=== PATIENT | female | born 1990 | race Caucasian/White ===

== ENCOUNTER 2017-02-13 11:25 | Outpatient (CLI) | payer OTHER ==
[~2017-02-13] VITALS: Ht 167.6 cm; Wt 103.0 kg
[2017-02-13 11:42] VITALS: BP 129/66; PULSE 96; RESP 18
[2017-02-13 11:50] VITALS: Ht 167.6 cm; Wt 103.0 kg
[2017-02-13] MEDS ORDERED: PRENAT PO (12:14)
[2017-02-13] MEDS ORDERED: FER325 PO (12:15)
[2017-02-13] MEDS ORDERED: GLYB5TAB3 PO (13:09)
--- NOTE | 2017-02-13 13:10 | RADRPT ---
PROCEDURE: Limited OB ultrasound for JAVY. CLINICAL INDICATION: Gestational diabetes TECHNIQUE: Sonographic evaluation to assess the amniotic fluid volume was performed. Transabdomin al imaging of the gravid uterus was performed. COMPARISON: OB ultrasound 10/26/2016 FINDINGS: Single live intrauterine with cardiac activity is identified. The heart rate i s 143 bpm. The amniotic -fluid volume equals approximately 14.8 cm, within normal limits. The plac enta is posterior. The lie is cephalic. IMPRESSION: 1. Amniotic fluid volume equals 14.8 cm. RPTAT: KK .Arnoldo Jolly MD, MD Date Time Electronically viewed and signed by .Arnoldo Jolly MD, MD on 02/13/2017 13:10 .B/
--- NOTE | 2017-02-14 16:34 | PN ---
Triage Information Date/Time Reason for visit: Assessment for elevated blood sugar Weeks of Gestation 37WEEKS /Para G2 P Diabetes: gestational Diabetes management: diet controlled Hypertention: none Objective Vital Signs Date Time Temp Pulse Resp B/P Pulse Ox O2 Delivery O2 Flow Rate FiO2 02/13/17 11:42 98.2 96 18 129/66 97 Room Air Heart Rate: 130's Contractions: None Exam Late entry ,patient seen in the triage unit with A2 diabetes on glyburide referred NST JAVY,14.8 and discharge with the report to the [facility]. Disposition: Discharge TIFFANIE GARCIA MD Feb 14, 2017 16:34
== END 2017-02-13 13:15 | disposition home or self-care (01) ==
LOC: OBT 11:25 → L-D 11:25 → OBT 13:15
PROVIDERS: ATTEND Obstetrics & Gynecology
DX: O24.419 Gestational diabetes mellitus in pregnancy, unspecified control (principal); Z3A.37 37 weeks gestation of pregnancy
CPT/HCPCS: 76815; Z7500; G0463

== ENCOUNTER → 2017-02-13 | Outpatient (CLI) | payer OTHER ==
[~2017-02-13] MED LIST: FER325 PO; GLYB5TAB3 PO; PRENAT PO
== END | disposition home or self-care (01) ==
LOC: OBT 13:23
PROVIDERS: ATTEND Obstetrics & Gynecology
DX: O24.419 Gestational diabetes mellitus in pregnancy, unspecified control (principal); Z3A.37 37 weeks gestation of pregnancy

== ENCOUNTER 2017-02-16 13:34 | Outpatient (CLI) | payer OTHER ==
[~2017-02-16] VITALS: Ht 167.6 cm; Wt 103.0 kg
--- NOTE | 2017-02-16 13:58 | RADRPT ---
PROCEDURE: OB ultrasound for biophysical profile CLINICAL INDICATION: Gestational diabetes TECHNIQUE: Multiple sonographic images of the pelvis were obtained. Transabdominal view of the gr avid uterus are available for review. The images were reviewed on a PACS workstation. COMPARISON: OB ultrasound 02/13/2017 FINDINGS: breathing movement = 2/2 tone = 2/2 motion = 2/2 JAVY = 2/2 JAVY = 14.4 cm Single live intrauterine with cardiac activity. heart rate equals 159 beats p er minute. Presentation is cephalic. The placenta is left lateral, grade II. IMPRESSION: 1. Single viable intrauterine gestation. 2. Biophysical profile = 88. 3. JAVY = 14.4 cm. RPTAT: KK .Arnoldo Jolly MD, MD Date Time Electronically viewed and signed by .Arnoldo Jolly MD, MD on 02/16/2017 13:58 .B/
[2017-02-16 14:21] VITALS: Ht 167.6 cm; Wt 103.0 kg
[2017-02-16 14:23] VITALS: BP 126/69
--- NOTE | 2017-02-16 15:17 | TRIAGE ---
OB Triage Datetime Report Generated by CPN: 02/16/2017 15:17 Datetime: 02/16/2017 14:12 Stage of : OB Triage Assessment Type: Triage Maternal Assessment Level of Consciousness: Fully Conscious DTR's/Clonus: DTRs 2+; No Clonus Headache: Denies Blurred Vision: No Respiratory Effort: Unlabored; Regular Rhythm; Equal Expansion Breath Sounds, Left: Clear and Equal Breath Sounds, Right: Clear and Equal Nausea/Vomiting: Denies RUQ Epigastric Pain: Denies Lower Extremities Edema: None Degree: None Upper Extremities Edema: None Degree: None Facial Edema: None Temperature Route: Oral Fall Risk Assessment History of Falling: (0) No Secondary Diagnosis: (0) No Ambulatory Aid: (0) Bedrest/Nurse Assist IV Therapy: (0) No Gait: (0) Normal/Bedrest/Immobile Mental Status: (0) Oriented to Own Ability Fall Score: 0 Fall Risk Score Definition: No Risk: No action required Monitor Mode: External Heart Rate FHR Baseline Rate: 175 Monitor Mode: External US Variability: Moderate 6-25 bpm Accelerations: 15X15 Decelerations: None Category: Category I Pain Assessment Pain Scale: 0 Pain Presence: None/Denies Datetime: 02/16/2017 13:28 Time of Arrival: 02/16/2017 13:28 EGA: 37.5 Arrived By: Ambulatory Arrived From: Home Chief Complaint: F/U NST BPP FOR A2DM Movement: Present Contractions: Denies/Absent Rupture of Membranes: Denies Vaginal Bleeding: None Vaginal Discharge: Denies Recent Sexual Intercouse: Denies Abdominal Trauma: Not Applicable Patient Complaints: None Initial Plan: EFMX2 NST/BPP JAVY Datetime: 02/13/2017 13:00 Stage of : OB Triage Datetime: 02/13/2017 12:00 Time of Arrival: 02/13/2017 11:20 EGA: 37.2 Arrived By: Ambulatory Arrived From: Dr. Amador Chief Complaint: SENT FROM [facility] FOR NST/JAVY Movement: Present Rupture of Membranes: Denies Vaginal Bleeding: None Vaginal Discharge: Denies Abdominal Trauma: Not Applicable Patient Complaints: None Provider Notified: JOSE Initial Plan: NST/JAVY Maternal Assessment Level of Consciousness: Fully Conscious DTR's/Clonus: DTRs 2+ Headache: Denies Blurred Vision: No Nausea/Vomiting: Denies RUQ Epigastric Pain: Denies Facial Edema: None Labor Evaluation Frequency: 0 Heart Rate FHR Baseline Rate: 145 Monitor Mode: External US FHR Baseline Changes: No Baseline Change Variability: Moderate 6-25 bpm Accelerations: 15X15 Decelerations: None Category: Category I Pain Assessment Pain Scale: 0 Vaginal Exam Membrane Status: Intact
--- NOTE | 2017-02-16 15:24 | CONS ---
Date/Time of Note Date/Time of Note DATE: 02/16/17 TIME: 15:17 Consultation Date/Type/Reason Admit Date/Time Reason for Consultation This patient is a 26 years old 2 para 1 with estimated date of confinement of March 04, 2017 which makes her 37 weeks and 5 days today. She came to OB triage due to the fact that the she has gestational diabetes and currently on glyburide. On examination she is a well-developed well-nourished lady near term. Her abdomen is soft, very rare contraction, heart tone appears to be normal Her general vital signs are normal with a blood pressure of 120/64 ,pulse rate of 92, respiration of 16 and temperature 98.6. heart tracing appears to be normal with good variability, occasional acceleration, no decelerations Constitutional: No chills, No diaphoresis, No disoriented, No febrile, No improved, No no complaints, No other, No poor po, No requiring IVF, No requiring O2 Eyes: No discharge, No no complaints, No other, No pain, No redness, No visual change ENT: No bleeding, No congestion, No discharge, No dysphagia, No no complaints, No other, No pain, No sore throat Respiratory: No cough, No no complaints, No other, No pain, No pleuritic pain, No shortness of breath, No sputum, No wheezing Cardiovascular: No chest pain, No edema, No lightheadedness, No no complaints, No orthopenea, No other, No palpitations, No paroxysmal nocturnal dyspnea Gastrointestinal: No blood, No constipation, No decreased appetite, No diarrhea , No flatus, No nausea, No no complaints, No other, No pain, No passing stool, No vomiting Genitourinary: other (Due to lack of any effective contractions pelvic exam was not performed), No bleeding, No discharge, No dysuria, No flank pain, No hematuria, No no complaints Musculoskeletal: No back pain, No bone/joint pain, No neck pain, No no complaints, No other, No restricted range of motion, No swelling Skin: No bruising, No erythema, No laceration, No no complaints, No other, No pruritis, No rash, No skin lesions Neurologic: other (Knee-jerk reflexes normal) Endocrine: No dry skin, No no complaints, No other, No polydypsia, No polyuria , No temp intolerance Lymphatic: No adenopathy, No lymphadema, No no complaints, No other, No tender nodes Additional Comments On ultrasound study the report is;a single live intrauterine with cardiac activity 159 beats per minutes, in vertex presentation, placenta was left lateral great to her biophysical profile was 8/8 amniotic fluid index 14.4 cm With these positive finding patient was discharged home to be followed in the clinic, and to continue her regiment of diabetes and taking glyburide 5 mg. Social History Smoking Status: Never smoker Exam/Review of Systems Vital Signs Vitals Vital Signs Date Time Temp Pulse Resp B/P Pulse Ox O2 Delivery O2 Flow Rate FiO2 02/16/17 14:23 98.6 126/69 Room Air ANNETTA BENEDICT MD Feb 16, 2017 15:24
== END 2017-02-16 15:29 | disposition home or self-care (01) ==
LOC: L-D 13:34 → OBT 13:34
PROVIDERS: ATTEND Obstetrics & Gynecology
DX: O24.415 Gestational diabetes mellitus in pregnancy, controlled by oral hypoglycemic drugs (principal); Z3A.37 37 weeks gestation of pregnancy; Z79.84 Long term (current) use of oral hypoglycemic drugs
CPT/HCPCS: 76818; Z7500; G0463

== ENCOUNTER 2017-02-27 09:19 | Inpatient (IN) | payer OTHER ==
[~2017-02-27] VITALS: Ht 167.6 cm; Wt 103.2 kg
[2017-02-27] MEDS ORDERED: CARBOPROST 250 MCG INJ IM PRN ×2 (09:30→16:30)
[2017-02-27] MEDS ORDERED: MISOPROSTOL 200 MCG TAB PR PRN ×2 (09:30→16:30)
[2017-02-27] MEDS ORDERED: OXYTOCIN 30 UNITS/LR 500 ML IV PRN ×2 (09:30→16:30)
[2017-02-27] MEDS ORDERED: CEFAZOLIN 2 GM/50 ML (PMX) 50 ML IV SCH (09:30)
[2017-02-27] MEDS ORDERED: METHYLERGONOVINE 0.2 MG INJ IM PRN ×2 (09:30→16:30)
[2017-02-27 09:33] VITALS: Ht 167.6 cm; Wt 103.2 kg
[2017-02-27] MEDS ORDERED: LACTATED RINGER'S 1,000 ML IV ONE (09:43)
[2017-02-27] MEDS ORDERED: FAMOTIDINE 20 MG INJ IV ONE (10:00)
[2017-02-27] MEDS ORDERED: CITRIC ACID/NA CITRATE 30 ML CUP PO ONE (10:00)
[2017-02-27] MEDS ORDERED: METOCLOPRAMIDE 10 MG INJ IV ONE (10:00)
[2017-02-27] MEDS: LACTATED RINGER'S 1,000 ML IV SCH ×2 (10:10→12:24)
[2017-02-27 10:34] VITALS: BP 131/82; PULSE 93; RESP 20
[2017-02-27 10:41] LABS: BASOPHILS % 0.4 % (0.0-2.0); EOSINOPHILS # 0.1 10^3/ul (0.0-0.5); EOSINOPHILS % 1.2 % (0.0-7.0); HEMOGLOBIN 12.7 g/dl (12.0-16.0); LYMPHOCYTES # 1.4 10^3/ul (0.8-2.9); LYMPHOCYTES % 14.3 % (15.0-51.0); MEAN CORPUSCULAR HEMOGLOBIN 27.3 pg (29.0-33.0); MEAN CORPUSCULAR HGB CONC 33.4 g/dl (32.0-37.0); MEAN CORPUSCULAR VOLUME 81.7 fl (82.0-101.0); MEAN PLATELET VOLUME 9.4 fl (7.4-10.4); MONOCYTE # 0.6 10^3/ul (0.3-0.9); MONOCYTES % 6.1 % (0.0-11.0); NEUTROPHILS % 77.5 % (39.0-77.0); PLATELET COUNT 275 10^3/UL (140-415); RED BLOOD COUNT 4.65 10^6/ul (4.20-5.40); RED CELL DISTRIBUTION WIDTH 14.3 % (11.5-14.5); WHITE BLOOD COUNT 9.9 10^3/ul (4.8-10.8)
[2017-02-27 11:02] LABS: INR 1.01; PARTIAL THROMBOPLASTIN TIME 28.5 Sec (25.0-35.0); PROTIME 13.3 Sec (12.2-14.2)
[2017-02-27] MEDS ORDERED: morphine SULFATE/PF (10 MG/10 ML) INJ ONE (12:47)
[2017-02-27] MEDS ORDERED: FENTAnyl 50 MCG/ML VIAL ONE (12:47)
[2017-02-27] MEDS ORDERED: PHENYLephrine (100 MCG/ML) 5ML SYG ONE (13:00)
[2017-02-27] MEDS ORDERED: OXYTOCIN 30 UNITS/LR 500 ML IV ONE (13:03)
[2017-02-27] MEDS ORDERED: ONDANSETRON 4 MG INJ ONE (13:04)
--- NOTE | 2017-02-27 14:22 | OPR ---
Operative Report Planned Procedure Free Text/Dictation 26 years old female history of previous EDC February admitted to [facility] at 39 weeks and 2 days for repeat Procedure date Feb 27, 2017 Procedure(s) Repeat Performed by: TIFFANIE GARCIA MD Assisting provider: FABIAN FELICIANO MD Anesthesiologist: MINESH STACY MD Pre-procedure diagnosis 39 weeks 2 days history of previous Anesthesia Type: spinal Procedure Description Under satisfactory spinal anesthesia, the patient was prepped and draped and placed in a supine position, tilted to the left. Pfannenstiel incision was made , carried through the subcutaneous tissue. Bleeders brought under control with electrocautery. Fascia incised to the length of the incision. Rectus muscles from the fascia, divided midline. Peritoneum exposed, entered through a transverse incision. Exploration of abdomen revealed gravid uterus normal- appearing tubes and ovaries. Bladder flap was developed. Transverse incision was made in the lower segment of the uterus which was extremely thinned out. Amniotic sac ruptured. [Clear] amniotic fluid noted. Live baby girl was delivered from L OT position Nasal oropharyngeal suction was performed. baby handed to the team for immediate attention. Patient received 20 units of Pitocin through the IV infusion placenta was delivered manually intact. Uterine cavity cleaned with wet sponge and drainage established. Uterus closed in 2 layers using [Monocryl #1] in continuous fashion. Peritoneal cavity irrigated with warm saline. Sponge, needle and instrument count reported to be correct. Abdominal peritoneum closed with [0 chromic catgut] continuously. Rectus muscle approximated with [several interrupted 2-0 chromic catgut fascia closed with #1 PDS [], tenderness tissue approximated with 2-0 chromic catgut skin closed with N sorb. Estimated blood loss 200 []mL. Urine bag contained [200 ]mL of clear urine and tolerated procedure well transferred to recovery room in good condition Post-Procedure Findings: Live Baby girl Apgars 8 and 9 Specimen removed: No Complications: None Pt Condition post procedure: stable Physician Certification I, the undersigned physician, hereby certify that I have discussed the procedure described in this consent form with this patient (or the patient's legal kiosk sales representative), including: * The risk and benefits of the procedure; * Any adverse reactions that may reasonably be expected to occur; * Any alternative efficacious methods of treatment which may be medically viable ; * The potential problems that may occur during recuperation; * Potential for blood transfusion and associated risks/benefits; and * Any research or economic interest I may have regarding this treatment. I further certify that the patient/legally responsible person was encouraged to ask question and that all questions were answered. TIFFANIE GARCIA MD Feb 27, 2017 14:22
[2017-02-27] MEDS ORDERED: ZOLPIDEM 5 MG TAB PO PRN (14:30)
[2017-02-27] MEDS ORDERED: KETOROLAC 30 MG INJ IV PRN (14:30)
[2017-02-27] MEDS ORDERED: MEPERIDINE 25 MG INJ IV PRN (14:30)
[2017-02-27] MEDS ORDERED: PROCHLORPERAZINE 10 MG INJ IV PRN (14:30)
[2017-02-27] MEDS ORDERED: ONDANSETRON 4 MG INJ IV PRN ×2 (14:30)
[2017-02-27] MEDS ORDERED: LABETALOL HCL 20MG INJ IV PRN (14:30)
[2017-02-27] MEDS ORDERED: HYDROmorphONE 1 MG/ML SYG IV PRN ×2 (14:30)
[2017-02-27] MEDS ORDERED: hydrALAzine 20 MG INJ IV PRN (14:30)
[2017-02-27] MEDS ORDERED: FENTAnyl 50 MCG/ML VIAL IV PRN (14:30)
[2017-02-27] MEDS ORDERED: HYDROmorphONE (0.2 MG/ML) 10ML SYG IV PRN (14:30)
[2017-02-27] MEDS ORDERED: OXYTOCIN 30 UNITS/LR 500 ML IV SCH (14:30)
[2017-02-27] MEDS ORDERED: DIPHENHYDRAMINE 50 MG INJ IV PRN ×2 (14:30)
[2017-02-27] MEDS ORDERED: NALOXONE (0.4 MG/ML) INJ IV PRN (14:30)
--- NOTE | 2017-02-27 14:58 | HP ---
Date/Time of Note Date/Time of Note DATE: 02/27/17 TIME: 14:22 OB - History Hx of Present Free Text/Dictation 26 years old female history of previous with EDC March 04, 2017 admitted to [facility] being prepared to undergo repeat . This patient has been under the care of the [facility] her was complicated with type II- NIDDM taking glyburide 5 mg twice daily , her admission fasting blood sugar 76 mg [employer] history- Menarche at age 11 history of 1 previous with section, type II -NIDDM no other pertinent surgical or medical addition reported in her records Allergies Denies allergy to any known medication Social habit Denies a smoking drinking or using illicit drug Review of system within normal Physical examination 66 inches 220 pound Temperature 98 pulse 94 respiration 20 blood pressure 128/65 Head ears nose and throat negative Neck supple no thyromegaly Lungs clear to P&A Heart normal sinus rhythm no murmur Abdomen, fundal height 37 cm from symphysis pubis, heart rate category 1 Pelvic examination, deferred Extremities no edema no varicosities Impression Intrauterine at 39 weeks and 1 day history of previous section type2-NIDDM admitted to [facility] for repeat C- section, she has been counseled regarding the complication of the surgery including but not limited to bowel and bladder injury, wound infection and hematoma hemorrhage ,she is willing to go ahead with the operation Chief Complaint: 39 weeks history of previous Estimated Due Date: Mar 04, 2017 : 2 Para: 1 Ultrasounds: Normal mid trimester US Obstetrical Complications: Gestational Diabetes Past Family/Social History * Past Medical, Surgical, Family and Obstetric Histories reviewed from chart. Rubella: immune RPR/VDRL: Negative GBS Status: Negative HBsAG: Negative OB Admission Exam Vital Signs Vital Signs Vital Signs Date Time Temp Pulse Resp B/P Pulse Ox O2 Delivery O2 Flow Rate FiO2 02/27/17 10:34 98.0 93 20 131/82 98 Room Air Physical Exam HEENT: WNL Heart: Rhythm Normal Lungs: Clear, Equal Extremities: Normal Reflexes: Normal Cervical Dilatation: None Station: -3 Membranes: Intact Heart Rate: 130's Accelerations: Accelerations Present Decelerations: No Decelerations Varibility: Moderate Last 72 hourBlood Glucose Bedside Glucose - 72 Hours Test 02/27/17 11:26 Bedside Glucose 86mg/dL (70-220) Last 72 hours Lab Results CBC & BMP 02/27/17 09:50 OB Assessment/Plan Plan: Other (26 years old 2 para 1 history of previous section admitted at 39 weeks and 1 day for repeat section) TIFFANIE GARCIA MD Feb 27, 2017 14:36
[2017-02-27] MEDS ORDERED: OXYCODONE/ACETAMINOPHEN (5/325) TAB PO PRN (16:30)
[2017-02-27] MEDS ORDERED: CEFAZOLIN 1 GM/50 ML (PMX) 50 ML IVPB SCH (16:30)
[2017-02-27] MEDS ORDERED: LANOLIN 7 GM TUBE TOP PRN (16:30)
[2017-02-27] MEDS ORDERED: HYDROCODONE/APAP (5/325) TAB PO PRN ×2 (16:30)
[2017-02-27 16:40] VITALS: BP 134/77; PULSE 82; RESP 18
[2017-02-27 17:10] VITALS: BP 131/75; PULSE 83
[2017-02-27] MEDS: KETOROLAC 30 MG INJ IV PRN (17:58)
[2017-02-27] MEDS: IBUPROFEN 600 MG TAB PO SCH ×2 (17:59→23:47)
[2017-02-27 18:10] VITALS: BP 133/60; PULSE 99; RESP 18
[2017-02-27] MEDS: OXYTOCIN 30 UNITS/LR 500 ML IV SCH ×2 (19:25→23:44)
[2017-02-27 19:45] VITALS: BP 127/69; PULSE 87; RESP 18
[2017-02-27] MEDS: SENNA/DOCUSATE NA (8.6MG/50MG) TAB PO SCH (21:00)
[2017-02-28] MEDS: OXYTOCIN 30 UNITS/LR 500 ML IV SCH ×6 (00:27→20:38)
[2017-02-28 03:47] VITALS: BP 126/58; PULSE 84
[2017-02-28] MEDS ORDERED: LACTATED RINGER'S 1,000 ML IV ONE (04:00)
[2017-02-28] MEDS: IBUPROFEN 600 MG TAB PO SCH ×4 (06:00→23:41)
[2017-02-28 07:42] VITALS: BP 119/66; PULSE 82; RESP 18
[2017-02-28] MEDS: KETOROLAC 30 MG INJ IV PRN (07:42)
[2017-02-28] MEDS: FERROUS SULFATE (EC) 325 MG TAB PO SCH (09:21)
[2017-02-28] MEDS: SENNA/DOCUSATE NA (8.6MG/50MG) TAB PO SCH ×2 (09:21→20:39)
[2017-02-28] MEDS: PRENATAL VITAMIN PO SCH (09:21)
--- NOTE | 2017-02-28 09:35 | PN ---
Date/Time of Note Date/Time of Note DATE: 02/28/17 TIME: 09:34 OB Subjective Subjective Subjective Post day 1 Afebrile Vital signs are stable Abdomen soft Incision dry Lochia normal Bowel sounds present Extremities normal Ambulation encouraged TIFFANIE GARCIA MD Feb 28, 2017 09:35
[2017-02-28 10:21] LABS: BASOPHILS % 0.4 % (0.0-2.0); EOSINOPHILS # 0.1 10^3/ul (0.0-0.5); EOSINOPHILS % 0.9 % (0.0-7.0); HEMATOCRIT 33.2 % (37.0-47.0); HEMOGLOBIN 10.9 g/dl (12.0-16.0); LYMPHOCYTES # 1.2 10^3/ul (0.8-2.9); LYMPHOCYTES % 11.9 % (15.0-51.0); MEAN CORPUSCULAR HEMOGLOBIN 27.3 pg (29.0-33.0); MEAN CORPUSCULAR HGB CONC 32.8 g/dl (32.0-37.0); MEAN PLATELET VOLUME 9.3 fl (7.4-10.4); MONOCYTE # 0.7 10^3/ul (0.3-0.9); MONOCYTES % 6.7 % (0.0-11.0); NEUTROPHILS % 79.6 % (39.0-77.0); PLATELET COUNT 223 10^3/UL (140-415); RED CELL DISTRIBUTION WIDTH 14.1 % (11.5-14.5); WHITE BLOOD COUNT 10.4 10^3/ul (4.8-10.8)
[2017-02-28 13:16] VITALS: BP 121/74; PULSE 97; RESP 20
[2017-02-28 16:08] VITALS: BP 123/67; PULSE 94; RESP 19
[2017-02-28 20:00] VITALS: BP 118/72; PULSE 78; RESP 17
[2017-02-28] MEDS: OXYCODONE/ACETAMINOPHEN (5/325) TAB PO PRN (20:40)
[2017-03-01 04:00] VITALS: BP 128/61; PULSE 77; RESP 17
[2017-03-01] MEDS: IBUPROFEN 600 MG TAB PO SCH ×4 (05:38→23:46)
[2017-03-01 08:20] VITALS: BP 126/65; PULSE 75; RESP 18
[2017-03-01] MEDS: SENNA/DOCUSATE NA (8.6MG/50MG) TAB PO SCH ×2 (08:20→19:51)
[2017-03-01] MEDS: FERROUS SULFATE (EC) 325 MG TAB PO SCH (08:20)
[2017-03-01] MEDS: PRENATAL VITAMIN PO SCH (08:20)
[2017-03-01] MEDS: OXYCODONE/ACETAMINOPHEN (5/325) TAB PO PRN ×3 (08:21→19:52)
--- NOTE | 2017-03-01 10:25 | PN ---
Date/Time of Note Date/Time of Note DATE: 03/01/17 TIME: 10:24 OB Subjective Subjective Subjective day 2 Afebrile Vital signs are stable Abdomen soft Incision dry Good bowel sounds Had bowel movement Extremities normal TIFFANIE GARCIA MD Mar 01, 2017 10:25
[2017-03-01 16:00] VITALS: BP 108/60; PULSE 65; RESP 17
[2017-03-01 19:52] VITALS: BP 125/81; PULSE 88; RESP 18
[2017-03-02 04:00] VITALS: BP 136/76; PULSE 88; RESP 20
[2017-03-02] MEDS: IBUPROFEN 600 MG TAB PO SCH ×2 (05:57→11:33)
[2017-03-02 08:00] VITALS: BP 119/83; PULSE 80; RESP 16
[2017-03-02] MEDS: SENNA/DOCUSATE NA (8.6MG/50MG) TAB PO SCH (08:47)
[2017-03-02] MEDS: PRENATAL VITAMIN PO SCH (08:48)
[2017-03-02] MEDS: FERROUS SULFATE (EC) 325 MG TAB PO SCH (08:48)
[2017-03-02] MEDS ORDERED: DIPHTH/TET/ACEL PERTUSS (ADULT) 0.5 ML VIAL IM* ONE (09:00)
--- NOTE | 2017-03-02 10:10 | DS ---
Date/Time of Note Date/Time of Note DATE: 03/02/17 TIME: 10:04 Post C section day 3 Doing Well Afebrile Ambulatory Chest Clear Breasts are soft , Nipples are intact Abdomen is soft Fundus is firm Moderate amount of lochia Incision is clean ,No evidence of infection No calf tenderness No ankle edema Discharged home with instruction to reswt at home and continue her glyburide tab ,and return in clinic in one week. Laboratory Tests Test 03/01/17 20:08 03/02/17 08:16 Bedside Glucose 132mg/dL 102mg/dL Current Medications Medications (Trade) Dose Ordered Sig/Aly Route PRN Reason Start Time Stop Time Status Last Admin Dose Admin Lactated Ringer's 1,000 ml @ 125 mls/hr Q8H IV 02/27/17 09:27 02/27/17 16:32 DC 02/27/17 12:24 Cefazolin Sodium/ Dextrose 50 ml @ 100 mls/hr ONCE IV 02/27/17 09:30 02/27/17 16:32 DC Oxytocin/Lactated Ringer's 500 ml @ 0 mls/hr ONCE PRN IV For Hemorrhage Management 02/27/17 09:30 02/27/17 16:32 DC Methylergonovine Maleate (Methergine) 0.2 mg ONCE PRN IM VAGINAL BLEEDING 02/27/17 09:30 02/27/17 16:32 DC 02/27/17 15:47 Carboprost Tromethamine (Hemabate) 250 mcg ONCE PRN IM VAGINAL BLEEDING 02/27/17 09:30 02/27/17 16:32 DC Misoprostol 1000 mcg 1,000 mcg ONCE PRN PA VAGINAL BLEEDING 02/27/17 09:30 02/27/17 16:32 DC Lactated Ringer's (Lr) 1,000 ml @ 1,000 mls/hr Q1H ONCE IV 02/27/17 09:43 02/27/17 10:42 DC 02/27/17 10:40 Citric Acid/ Sodium Citrate (Bicitra) 30 ml PRE-OP ONCE PO 02/27/17 10:00 02/27/17 10:01 DC 02/27/17 10:24 Famotidine (Pepcid Iv) 20 mg pre-procedure ONCE IV 02/27/17 10:00 02/27/17 10:01 DC 02/27/17 10:24 Metoclopramide HCl (Reglan) 10 mg ONCE ONCE IV 02/27/17 10:00 02/27/17 10:01 DC 02/27/17 10:23 Morphine Sulfate (Duramorph) 10 mg STK-MED ONCE .ROUTE 02/27/17 12:47 02/27/17 12:48 DC Fentanyl (Sublimaze) 100 mcg STK-MED ONCE .ROUTE 02/27/17 12:47 02/27/17 12:48 DC Phenylephrine HCl 500 mcg 500 mcg STK-MED ONCE .ROUTE 02/27/17 13:00 02/27/17 13:01 DC Oxytocin/Lactated Ringer's 500 ml @ ud STK-MED ONCE IV 02/27/17 13:03 02/27/17 13:04 DC Ondansetron HCl (Zofran Inj) 4 mg STK-MED ONCE .ROUTE 02/27/17 13:04 02/27/17 13:05 DC Hydromorphone HCl (Dilaudid (Rec)) 0.4 mg PACU ORDER PRN IV PAIN 02/27/17 14:30 02/27/17 16:32 DC Fentanyl (Sublimaze) 25 mcg PACU ORDER PRN IV PAIN 02/27/17 14:30 02/27/17 16:32 DC Ketorolac Tromethamine (Toradol) 30 mg PACU ORDER PRN IV FOR PAIN AFTER IV NARCOTIC MED 02/27/17 14:30 02/27/17 16:32 DC Ondansetron HCl (Zofran Inj) 4 mg PACU ORDER PRN IV NAUSEA AND/OR VOMITING 02/27/17 14:30 02/27/17 16:32 DC Prochlorperazine (Compazine Inj) 5 mg PACU ORDER PRN IV NAUSEA AND/OR VOMITING 02/27/17 14:30 02/27/17 16:32 DC Labetalol HCl (Labetalol) 5 mg PACU ORDER PRN IV HIGH BLOOD PRESSURE 02/27/17 14:30 02/27/17 16:32 DC Hydralazine HCl (Apresoline) 5 mg PACU ORDER PRN IV HIGH BLOOD PRESSURE 02/27/17 14:30 02/27/17 16:32 DC Meperidine HCl (Demerol) 25 mg PACU ORDER PRN IV POST-OP RIGORS 02/27/17 14:30 02/27/17 16:32 DC Diphenhydramine HCl (Benadryl) 25 mg PACU ORDER PRN IV PRURITUS 02/27/17 14:30 02/27/17 18:30 DC 02/27/17 15:54 Naloxone HCl (Narcan) 0.1 mg Q2M PRN IV FOR RESP RATE 8 OR LESS 02/27/17 14:30 02/28/17 14:29 DC Ketorolac Tromethamine (Toradol) 30 mg Q6H PRN IV PAIN 02/27/17 14:30 02/28/17 14:29 DC 02/28/17 07:42 Hydromorphone HCl (Dilaudid) 0.4 mg Q3H PRN IV PAIN LEVEL 1-5 02/27/17 14:30 02/28/17 14:29 DC Hydromorphone HCl (Dilaudid) 0.6 mg Q3H PRN IV PAIN LEVEL 6-10 02/27/17 14:30 02/28/17 14:29 DC Diphenhydramine HCl (Benadryl) 25 mg Q6H PRN IV ITCHING 02/27/17 14:30 02/28/17 14:29 DC Ondansetron HCl (Zofran Inj) 4 mg Q6H PRN IV NAUSEA AND/OR VOMITING 02/27/17 14:30 02/28/17 14:29 DC Zolpidem Tartrate (Ambien) 5 mg HS MAY REPEAT X 1 PRN PO INSOMNIA 02/27/17 14:30 02/28/17 14:29 DC Miscellaneous Information Duramorph: 0.2 mg Spi... GIVEN XX 02/27/17 14:30 02/27/17 16:32 DC Oxytocin/Lactated Ringer's 500 ml @ 125 mls/hr ONCE -MAY REPEAT X1 IV 02/27/17 14:30 02/27/17 14:31 Acetaminophen/ Hydrocodone Bitart ([place] (5/325)) 1 tab Q4H PRN PO PAIN LEVEL 4-6 02/27/17 16:30 03/02/17 03:30 Acetaminophen/ Hydrocodone Bitart ([place] (5/325)) 2 tab Q4H PRN PO PAIN LEVEL 7-10 02/27/17 16:30 Oxycodone/ Acetaminophen (Percocet (5/ 325)) 1 tab Q4H PRN PO PAIN LEVEL 4-6 02/27/17 16:30 03/01/17 19:52 Oxycodone/ Acetaminophen (Percocet (5/ 325)) 2 tab Q4H PRN PO PAIN LEVEL 7-10 02/27/17 16:30 Ibuprofen (Motrin) 600 mg Q6 PO 02/27/17 18:00 03/02/17 05:57 Simethicone (Mylicon) 160 mg Q8H PRN PO DISTENSION/GAS/BLOATING 02/27/17 16:30 Senna/Docusate Sodium (Senokot-S) 1 tab BID PO 02/27/17 21:00 03/02/17 08:47 Lanolin (Kab-U-Unwmus) 1 applic BEDSIDE MEDICATION PRN TOP BEDSIDE FOR SHAREE TO NIPPLES 02/27/17 16:30 02/27/17 17:58 Diphtheria/ Tetanus/Acell Pertussis 0.5 ml 0.5 ml ONCE ONCE IM* 03/02/17 09:00 03/02/17 09:01 DC Oxytocin/Lactated Ringer's 500 ml @ 0 mls/hr ONCE PRN IV For Hemorrhage Management 02/27/17 16:30 Methylergonovine Maleate (Methergine) 0.2 mg ONCE PRN IM VAGINAL BLEEDING 02/27/17 16:30 Carboprost Tromethamine (Hemabate) 250 mcg ONCE PRN IM VAGINAL BLEEDING 02/27/17 16:30 Misoprostol 1000 mcg 1,000 mcg ONCE PRN PA VAGINAL BLEEDING 02/27/17 16:30 Cefazolin Sodium 50 ml @ 100 mls/hr ONCE IVPB 02/27/17 16:30 02/27/17 16:59 DC 02/27/17 17:59 Oxytocin/Lactated Ringer's 500 ml @ 125 mls/hr Q4H IV 02/27/17 16:27 02/28/17 21:19 DC 02/27/17 23:44 Ferrous Sulfate (Ferrous Sulfate (Ec)) 325 mg DAILY PO 02/28/17 09:00 03/02/17 08:48 Prenat Multivit/ Corder/Iron/Folic Ac 1 tab 1 tab DAILY PO 02/28/17 09:00 03/02/17 08:48 Lactated Ringer's (Lr) 1,000 ml @ 125 mls/hr Q8H ONCE IV 02/28/17 04:00 02/28/17 11:59 DC 02/28/17 03:47 New born is doing well, Breast feeding Obstetrical Discharge Record Final Diagnosis Final Diagnosis: Term delivered Section Section: Repeat Complications Augmentation: No Induction: No Rupture of Membranes: No Condition on Discharge Physical Assessment Voiding: Yes Bowel Movement: Yes Breast: Soft, non-tender Fundus: Firm Calf Tenderness: No Patient Condition: Good ANNETTA BENEDICT MD Mar 02, 2017 10:10
== END 2017-03-02 13:15 | disposition home or self-care (01) | DRG 765 ==
LOC: L-D 09:19 → PP1 16:31
PROVIDERS: ADMIT Obstetrics & Gynecology; ATTEND Obstetrics & Gynecology
PROC: 10D00Z1 Extraction of Products of Conception, Low, Open Approach (ICD-10-PCS; principal; 2017-02-27 12:30)
DX: O34.211 Maternal care for low transverse scar from previous cesarean delivery (principal); O24.12 Pre-existing type 2 diabetes mellitus, in childbirth; E11.9 Type 2 diabetes mellitus without complications; Z37.0 Single live birth; Z3A.39 39 weeks gestation of pregnancy
CPT/HCPCS: 82962; 85025; 85610; 85730; 86592; 86850; 86900; 86901; 87340; 90715; 94760; 99464; J0690; J1200; J1885; J2274; J2370; J2405; J2590; J2765; J3010; J7120